=== PATIENT | female | born 1990 | race Caucasian/White ===

== ENCOUNTER 2017-04-07 00:07 | Emergency (ER) | payer BC ==
[~2017-04-07] VITALS: Ht 175.3 cm; Wt 61.2 kg
[~2017-04-07 00:07] MED LIST: CELEXA10 M1 PO; NORCO 325 MG-51 TAB PO; OMEPRAZOLE D/R20 MG PO; PHENERGAN25 M3 PR; ZOFRAN ODT8 MG PO
[2017-04-07 00:22] LABS: URINE BILIRUBIN - DIPSTICK NEGATIVE (NEG); URINE BLOOD TRACE-INTACT (NEG)
--- OUTSIDE RECORDS SUMMARY | 2017-04-07 00:27 | External Medical Summary Rpt ---
Author Author ROMINA Address Unknown Phone [email or web address] Purpose Continuity of Care Document - through 2016
--- OUTSIDE RECORDS SUMMARY | 2017-04-07 00:27 | External Medical Summary Rpt ---
Author Author [employer]PID[employer] Sharif, ELPIDIO Sharif Organization [employer] Address Unknown Phone Unavailable
--- OUTSIDE RECORDS SUMMARY | 2017-04-07 00:27 | External Medical Summary Rpt ---
Demographics Preferred Language Lao Marital Status Unknown Zoroastrian Affiliation Unknown Race Unknown Ethnic Group Unknown Author Author , ELPIDIO MAGALLANES Address Unknown Phone Immunization Unable to retrieve immunization data due to connection failure with Immunization Registry. Please try again later.
--- OUTSIDE RECORDS SUMMARY | 2017-04-07 00:27 | External Medical Summary Rpt ---
Author Author ROMINA Address Unknown Phone [email or web address] Purpose Continuity of Care Document - through 2016
--- OUTSIDE RECORDS SUMMARY | 2017-04-07 00:27 | External Medical Summary Rpt ---
Author Author [employer] Organization [employer] Address Unknown Phone Unavailable Purpose Continuity of Care Document - through 2016
--- OUTSIDE RECORDS SUMMARY | 2017-04-07 00:27 | External Medical Summary Rpt ---
Demographics Preferred Language Faroese Marital Status Unknown Orthodox Affiliation Unknown Race Unknown Ethnic Group Unknown Author Author , ELPIDIO MAGALLANES Address Unknown Phone Immunization Unable to retrieve immunization data due to connection failure with Immunization Registry. Please try again later.
[2017-04-07 00:32] LABS: LYMPH # 0.6 K/mm3 (0.7-4.5); LYMPH % 9.8 % (10-50.0)
[2017-04-07] MEDS ORDERED: CITALOPRAM HYDR20 MG PO (00:35)
[2017-04-07] MEDS ORDERED: DIAZEPAM5 M1 PO (00:36)
[2017-04-07 00:46] LABS: HEMOGLOBIN 13.4 g/dL (12.2-16.2)
[2017-04-07 01:05] LABS: AEROMONAS NOT DETECTED (NOT DETECTE); ASTROVIRUS NOT DETECTED (NOT DETECTE); CYCLOSPORA CAYETANENSIS NOT DETECTED (NOT DETECTE); E COLI O157 NOT DETECTED (NOT DETECTE); ENTEROAGGREGATIVE E COLI NOT DETECTED (NOT DETECTE); ENTEROPATHOGENIC E COLI NOT DETECTED (NOT DETECTE); ENTEROTOXIGENIC E COLI NOT DETECTED (NOT DETECTE); NOROVIRUS NOT DETECTED (NOT DETECTE); SAPOVIRUS NOT DETECTED (NOT DETECTE); SHIGA-LIKE TOXIN PROD. E COLI NOT DETECTED (NOT DETECTE); SHIGELLA/ENTEROINVASIVE E COLI NOT DETECTED (NOT DETECTE); VIBRIO CHOLERAE NOT DETECTED (NOT DETECTE)
--- NOTE | 2017-04-07 01:24 | Emergency Room Report ---
History of Present Illness Time Seen by 0025 Presenting Problem in Triage Pt arrived:Walked Presenting Problem:C/O NAUSEA/VOMITING, DIARRHEA, AND ABDOMINAL PAIN. 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 Y Clinical Suspician of Infection? Y Mental Status: 1 - Regular (Normal Baseline) Sepsis Risk:Possible Sepsis Risk Have you (or family members/close friends) recently traveled outside the [place]? N If Yes, where/when: Have you had exposure to infectious disease within the past month? N TB? Other? Specify: Source patient, RN notes reviewed, family, RN/MD Exam Limitations no limitations Comment This is a 26-year-old lady arriving to the emergency room with nausea, vomiting, diarrhea for the past 3 days, unable to hold down anything recently. She denies any fever, recent travel, any recent exposure to sick contacts. 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 No blood in the vomitus or stool. ALLERGIES Coded Allergies: Coconut (ANAPHYLACTIC REACTION 07/26/13) Pertussis Vaccines (10/13/15) Sulfa (Sulfonamide Antibiotics) (10/13/15) latex (10/13/15) pineapple (10/13/15) Home Medications Reported Medications Citalopram Hydrobromide (Citalopram HBr) 20 MG PO NIGHTLY #30 Diazepam 5 MG PO NIGHTLY #30 History Medical History General CAD? No Angina: No MA: No Hypertension? No Hyperlipidemia? No CHF? No DVT? No PE? No COPD? No Asthma? No Anemia? No GERD? No Gastric ulcers? No GI Bleed? No Hernia? No Thyroid Problems? No Hypothyroidism? No CVA? No Seizures? No Diabetes? No Renal Insuffiency? No End Stage Renal Disease? No UTI? No Stones? No BPH? No GB Disease: Yes Nephritic Syndrome? No Asplenia? No Hepatitis? No Sickle Cell Disease? No Arthritis? No Migraines? No Cataracts? No Glaucoma? No MRSA? No HIV? No TB? No Anxiety? No Depression? No Cancer? No More? 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 2 Weeks Ago Family History Family Hx Diabetes Yes CAD Yes Hypertension Yes Hyperlipidemia Yes Cancer Yes TB Yes Social History Smoking Hx Smoker: Never Smoker Tobacco: No Alcohol Alcohol: No Review of Systems All Other Systems Reviewed and Negative Gastrointestinal abdominal pain, diarrhea, nausea, vomiting Physical Exam Vital Signs Vital Signs Date Time Temp Pulse Resp B/P Pulse O2 O2 Flow FiO2 Ox Delivery Rate / 0325 97.6 92 20 97/64 100 08/ 0323 97.6 92 20 97/64 100 08/ 0237 65 20 94/58 100 08/ 0155 97.6 77 20 97/51 100 08/ 0138 20 08/ 0119 97.6 78 20 97/58 98 08/ 0016 97.6 96 20 109/78 100 - WBC >12,000 or <4,000 or 10% bands? 2 or more SIRS Criteria Met? B/P:97/64 MAP:88 Creatinine >2.0? UA output<0.5ml/kg/hr for 2 hrs? Platelet count >100,000? Lactate >2.0mmol/1? INR >1.2 or PTT > than 60 sec? Evidence of Organ Dysfunction? Provider documented clinical suspician of infection? Y Sepsis Criteria Count: 2 Sepsis Risk: Possible Sepsis Risk General Appearance normal appearance, WD/WN, mild distress Respiratory Status Yes: trachea midline, chest symmetrical, non tender chest. No: respiratory distress. Lung Sounds bilateral: normal breath sounds, lungs clear. Cardiovascular normal exam, regular rate/rhythm, no peripheral edema, no gallop, no JVD, no murmur, no rub, normal peripheral pulses Gastrointestinal normal bowel sounds, soft, no organomegaly, tenderness ( diffusely), no peritoneal signs Back normal inspection, no CVA tenderness, no vertebral tenderness Extremities non-tender, normal range of motion, normal inspection Neurologic alert, cupola patcher helper II-XII nml as tested, normal exam, oriented x 3 Mental status normal mood/affect Skin intact, normal color, warm/dry Medical Decision Making LABS/Meds/Orders Pt receiving controlled substance in ED? No Comment Upon reevaluation patient appears medically stable, in minimal distress, clinically improving, after receiving antiemetics and analgesics. Advised patient results obtained (diarrhea secondary to cryptosporidium), need to continue oral hydration, Zofran/fever as needed for nausea. Work excuse provided for 2 days. Patient advised to follow-up with PCP, if worse or return promptly to this, same, emergency room, for evaluation. Results/Orders Laboratory Tests 04/07/17 0105: Stl Cyclospora species NOT DETECTED, Stool Rotavirus (PCR) NOT DETECTED, Stool Campylobacter PCR NOT DETECTED, Stool Giardia Lamblia PCR NOT DETECTED, Stl Norovirus GI/GII PCR NOT DETECTED, Adenovirus (PCR) NOT DETECTED, C. difficile Tox (PCR) NOT DETECTED, E. coli (PCR) NOT DETECTED, Yersinia (PCR) NOT DETECTED 04/07/17 0030: Sodium 142, Potassium 3.1 L, Chloride 104, Carbon Dioxide 29, BUN 9, Creatinine 0.7, Estimated Creat Clear 120, Estimated GFR (MDRD) 103, Glucose 91, Calcium 8.4 L, Total Bilirubin 0.3, AST 27, ALT 22, Alkaline Phosphatase 97, Total Protein 7.4, Albumin 3.8, Globulin 3.6 H, Albumin/Globulin Ratio 1.1, Amylase 49, Lipase 83, WBC 6.0, RBC 4.57, Hgb 13.4, Hct 40.8, MCV 89.3, RDW 12.6, Plt Count 213, MPV 6.9 L, Gran % 80.8 H, Gran # 4.9, Lymphocytes % 9.8 L, Monocytes % 6.7, Eosinophils % 2.2, Basophils % 0.6, Lymphocytes # 0.6 L, Monocytes # 0.4, Eosinophils # 0.1, Basophils # 0.0, PUBS MCHC 32.6, MCH 29.1 04/07/17 0020: Urine Color YELLOW, Urine Appearance CLEAR, Urine pH 6.0, Ur Specific [place] 1.025, Urine Protein TRACE H, Urine Ketones NEGATIVE, Urine Blood TRACE-INTACT, Urine Nitrate NEGATIVE, Urine Bilirubin NEGATIVE, Urine Urobilinogen 1.0, Ur Leukocyte Esterase NEGATIVE, Urine RBC OCC, Urine WBC OCC, Ur Squamous Epith Cells 3-5, Urine Bacteria 2+, Urine Glucose NEGATIVE Current Medication Orders Sig/[place] Start time Last Medication Dose Route Stop Time Status Admin Promethazine HCl 0 .STK-MED ONE 04/07 0134 DC .ROUTE Sodium Chloride 25 ML .STK-MED ONE 04/07 0134 DC IV Sodium Chloride 1,000 ML .STK-MED ONE 04/07 013 DC IV Morphine Sulfate 0 .STK-MED ONE 04/07 0133 DC .ROUTE Morphine Sulfate 4 MG ONCE ONE 04/07 013 DC 04/07 IV 04/07 013 0138 Potassium Chloride 40 MEQ ONCE ONE 04/07 130 CAN PO 04/07 131 Promethazine HCl 12.5 MG ONCE ONE 04/07 130 DC 04/07 IV 04/07 013 0137 Sodium Chloride 25 ML ONCE ONE 04/07 013 DC 04/07 IV 04/07 0144 0139 Sodium Chloride 1,000 ML .Q1H1M 04/07 013 DC 04/07 IV 04/07 0230 0138 Sodium Chloride 10 ML PRN PRN 04/07 0130 DCD IV 04/08 0130 Ondansetron HCl 4 MG ONCE ONE 04/07 0030 DC 04/07 IV 04/07 0031 0035 Ondansetron HCl 0 .STK-MED ONE 04/07 0029 DC .ROUTE Sodium Chloride 1,000 ML .STK-MED ONE 04/07 0028 DC IV Sodium Chloride 10 ML PRN PRN 04/07 0015 DCD IV 04/08 0011 Sodium Chloride 1,000 ML .Q1H1M 04/07 0015 DC 04/07 IV 04/07 0115 0036 Sodium Chloride 10 ML PRN PRN 04/07 0015 DCD IV 04/08 0012 Orders Procedure Date/time Status DIET-NOTHING BY MOUTH 04/07 B Active DIARRHEA PANEL, PCR 04/[address] ABD & PELVIS W/O CONTRAST 04/07 0031 Active CULTURE, URINE 04/[address] ABD REQUEST 04/07 0012 Complete IV SALINE LOCK 04/07 0012 Active URINALYSIS/COMPLETE 04/07 001 Complete URINE 04/07 001 Complete LIPASE 04/07 001 Complete CBC WITH AUTO DIFF 04/07 001 Complete CHEM 12 PROFILE 04/07 001 Complete AMYLASE 04/07 001 Complete XRAY/CT/US XRAY/CT/US CT abdomen, pelvis CT interpretation by discussed w/radiologist Time results known: 0122 CT Results abnormal Comment low garde colitis, diarrhea - per V Rad report Departure Departure Time of Disposition 030 Disposition DC Home or Self Care(routine) Clinical Impression Primary Impression: Gastroenteritis due to Cryptosporidium Condition STABLE Referrals Lori Venegas APRN (PCP/Family): 2 Days-Call Office if not better Patient Instructions Cryptosporidiosis Additional Instructions Please drink lots of fluids, take Zofran/Phenergan as needed, alternate Motrin/ Tylenol as needed for pain. Discharge Counseling Counseled pt/family regarding diagnosis, test results, medications/RX, home care, follow up needs Comment Please drink lots of fluids, take Zofran/Phenergan as needed, alternate Motrin/ Tylenol as needed for pain. Prescriptions Current Visit Scripts PROMETHAZINE HCL (Phenergan 25MG Tab (Geq)) 25 MG PO Q6HP PRN N/V #20 TAB Ondansetron (Zofran 4MG Odt) 4 MG PO Q6HP PRN NAUSEA AND VOMITING #20 ODT ED Critical Care Critical Care No at 0698
[2017-04-07] MEDS ORDERED: ZOFRAN ODT4 MG PO (03:10)
[2017-04-07] MEDS ORDERED: PHENERGAN25 M3 PO (03:10)
[2017-04-07 03:25] VITALS: BP 97/64
--- NOTE | 2017-04-07 08:11 | RADIOLOGY REPORT PS360 ---
CT ABD PELVIS W/O CONTRAST COMPARISON: CT scan abdomen pelvis 08/24/2014 HISTORY: The bowel pain, nausea and vomiting, some diarrhea TECHNIQUE: Multiaxial scans obtained from the diaphragms to the pelvic floor and were performed without IV or oral contrast. Sagittal coronal reformats were evaluated as well. FINDINGS: The lower lung lee are clear. The liver spleen and stomach and pancreas appear normal, there has been a previous cholecystectomy. The adrenal glands are normal. The kidneys are normal in size and there is a tiny nonobstructing calculus left kidney. There is no obstructive uropathy of either kidney. Small bowel appears normal. There is moderate dilatation of the colon with fluid and gas with air-fluid levels noted likely reflecting some degree of enteritis or colitis. I feel is no obstruction. There are fluid-filled loops of distal small bowel as well. The appendix is normal and air-filled. The uterus is normal size and in the midline, the urinary bladder is decompressed. Is no free fluid in the pelvis. There is mild dextroscoliotic curvature of the lumbar spine. IMPRESSION: Findings concerning for some degree of enteritis and/or colitis other nonacute findings as described above. Agree with the [facility] report
== END 2017-04-07 03:26 | disposition home or self-care (01) ==
LOC: ER 00:07
PROVIDERS: Emergency Medicine
DX: A07.2 Cryptosporidiosis (principal)
CPT/HCPCS: J2405

== ENCOUNTER → 2017-06-05 | Outpatient (CLI) | payer BC ==
--- NOTE | 2017-06-06 06:33 | RADIOLOGY REPORT PS360 ---
CT ABD W/WO CONTRAST CLINICAL INDICATION: Right upper quadrant pain, diarrhea, cryptosporidia GENERALIZED ABD PAIN ORDERING PHYSICIAN: Lori Venegas APRN PATIENT AGE: 27 years COMPARISON: 04/07/2017 TECHNIQUE: Axial images are obtained without and with contrast. 75 mL [id number] utilized. Oral Redicat was also given. FINDINGS: No acute finding in the lung bases. Prior cholecystectomy. No biliary dilatation. No focal liver lesion evident. The spleen, adrenal glands, and pancreas have an unremarkable appearance. No renal calculi or ureteral calculi. No hydronephrosis. No intestinal obstruction or free air. The previously noted air-fluid levels in the colon and small bowel have improved. Bowel gas pattern is unremarkable. There is a mild amount retained colonic feces. Mild dextroscoliosis of the thoracic and lumbar spine. No abdominal mass or abnormal fluid collection. IMPRESSION: 1. No acute finding. 2. Prior cholecystectomy. No biliary dilatation or other acute anomalies.
== END ==
LOC: RAD 09:45
DX: R10.84 Generalized abdominal pain (principal)